=== PATIENT | male | born 1985 | race Caucasian/White ===

== ENCOUNTER 2023-09-03 22:12 | Emergency (ER) | payer MEDICAID, SELFPAY ==
[2023-09-03 22:12] VITALS: BP 171/93; PULSE 76; RESP 18; TEMP 36.4; O2SAT 100; BMI 29.0
--- NOTE | 2023-09-03 22:40 | RAD_ITS ---
EXAM: XR Wrist Min 3 Views INDICATION: Male, 38 years old. Post traumatic left wrist pain TECHNIQUE: AP, lateral, and oblique views COMPARISON: None FINDINGS: BONES: No acute fracture. No lytic or blastic lesion. JOINTS: Joints are in normal alignment. No periarticular degenerative or inflammatory change. SOFT TISSUES: No soft tissue abnormality. RAD/Wrist min 3 Views IMPRESSION: No acute abnormality of the left wrist Electronically Signed: Sridhar Pascal MD at 23:15 EST ,
--- NOTE | 2023-09-04 | EX.ED.UPPERE ---
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 Today he was wrestling with someone and he put his left hand out behind him to brace himself and felt severe acute pain in the same wrist. He is pointing to the distal radius, just volar of the lateralmost aspect. [facility] Medical History (Updated 09/04/23 @ 00:[address] Toan Decker MD) GERD (gastroesophageal reflux disease) Home Medications multivitamin (Daily Multi-Vitamin tablet) 1 tab PO DAILY 09/03/23 [History Last Taken Unknown] Allergy/AdvReac Type Severity Reaction Status Date / Time No Known Allergies Allergy Verified 09/03/23 22:14 Social History Smoking Status: Never smoker ROS ROS ED Constitutional Constitutional ED: Denies chills or fever(s) Musculoskeletal Musculoskeletal: Reports extremity pain; Denies neck pain Integumentary Denies Abrasions, rash or wounds Neurologic Neurologic: Denies paresthesias or weakness EXAM Physical Exam Const Vital Signs: 09/03/23 22:12 Temperature 97.6 F L Temperature Source Temporal Pulse Rate 76 Respiratory Rate 18 Blood Pressure 171/93 H Blood Pressure Mean 119 Pulse Ox 100 Oxygen Delivery Method Room Air Positive well nourished and well developed General Appearance ED: well developed and NAD Neck full ROM and supple Back/Spine normal ROM and normal to inspection Extremity normal to inspection Extremity Narrative: Patient has no distal radius or ulnar tenderness. There is no metacarpal tenderness. There is no tenderness in the snuffbox, and no pain with axial loading of the thumb. The area that he is tender is just volar to the APL. He is able to range fully but limited at extremes of wrist flexion and extension due to pain. No deformities. No areas of swelling. No other areas of tenderness. Neuro oriented x3, no focal motor deficits and no sensory deficits noted Sensorium / Orientation: alert Psych mental status grossly normal and thought process normal Skin no wounds Rashes: no rashes MDM MDM MDM Narrative Medical decision making narrative: 4 view x-ray series of the left wrist on my interpretation is negative for acute fracture, including scaphoid view. Radiology in agreement. My suspicion for scaphoid injury here is very low given the exam findings. Patient is reassured, given a prefabricated wrist splint, and referral to orthopedics if he goes a couple weeks and is not having improvement he is comfortable with that plan. Radiography Diagnostic Testing: Clinical Impression(s) from Imaging Studies Wrist X-Ray 09/03/23 22:40 IMPRESSION: No acute abnormality of the left wrist Electronically Signed: Sridhar Pascal MD at 23:15 EST , Discharge Plan Triage Chief Complaint: Upper Extremity Injury ED Provider: Toan Decker Dx/Rx/DC Orders Clinical Impression: Left wrist sprain Instructions: ED Wrist Sprain Prescriptions: No Action multivitamin [Daily Multi-Vitamin] Tablet 1 tab PO DAILY Primary Care Provider: Care Physician,No Primary Referrals: Aron Chavarria DO [Med Staff - Active Staff] - (couple weeks if not improving) Care Physician,No Primary [Primary Care Provider] - Disposition Disposition: Home, Self Care
[2023-09-04 00:24] VITALS: BP 132/70; PULSE 70; RESP 16; O2SAT 98
== END 2023-09-04 00:25 | disposition home or self-care (01) ==
PROVIDERS: Emergency Provider Emergency Medicine; Visit Provider Emergency Medicine
DX: S63.92XA Sprain of unspecified part of left wrist and hand, initial encounter (principal); K21.9 Gastro-esophageal reflux disease without esophagitis; W19.XXXA Unspecified fall, initial encounter
CPT/HCPCS: 73110; 99282